=== PATIENT | female | born 1935 | race Caucasian/White ===

== ENCOUNTER 2017-08-19 05:18 | Emergency (ER) | payer MEDICARE ==
[~2017-08-19] VITALS: Ht 160 cm; Wt 93.6 kg
[~2017-08-19 05:18] MED LIST: AMOX875 PO; BENZ100 PO; LEVO88TA21 PO; OMEP20CA5 PO; PRIN20TA2 PO; VENTAER INH; ZIAC106.25 PO; ZITH500T PO
[2017-08-19 05:22] VITALS: BP 162/72; PULSE 86; RESP 18; TEMP 98.6; O2SAT 99
[2017-08-19 05:49] VITALS: BP 140/79; PULSE 84; RESP 16; TEMP 99.1; O2SAT 99
[2017-08-19] MEDS ORDERED: SODIUM CHLOR 0.9% 1000 ML INJ 1,000 ML IV SCH (06:18)
--- NOTE | 2017-08-19 06:22 | PD ---
HPI Chief Complaint: GI Complaint Time Seen by Provider: 06:12 Travel History International Travel<30 days: No Contact w/Intl Traveler<30days: No Traveled to known affect area: No History of Present Illness HPI The patient is an 82-year-old female that complains since 8 PM yesterday of nausea. She has not vomited. She also has some diaphoresis, shakiness, teeth chattering since then. She states she is very suspicious of some beats do that she opened it may have been opened previously. She says the solid and trim cocktail that she ate was fresh. In addition she has a global headache of gradual onset. PFSH Past Medical History GERD: Yes Hypertension: Yes Medical other: Yes (SJORGEN'S SYNDROME, STAGE 3 KIDNEY FAILURE, ARTHRITIS) Thyroid Disease: Yes Tetanus Vaccination: Unknown Influenza Vaccination: Yes ?: Not Dilation and Curettage (D&C): Yes Past Surgical History Eye Surgery: Yes (BILATERAL CATARACTS) Other Surgery: Yes (BREAST BIOPSY) Social History Alcohol Use: No Tobacco Use: No Substance Use: No Allergies-Medications (Allergen,Severity, Reaction): Coded Allergies: doxycycline (Verified Allergy, Intermediate, Hives, 08/19/17) minocycline (Verified Allergy, Intermediate, Hives, 08/19/17) tigecycline (Verified Allergy, Intermediate, Hives, 08/19/17) Reported Meds & Prescriptions Reported Meds & Active Scripts Active Ventolin Hfa (Albuterol Sulfate) 18 Gm Aero 2 Puff INH Q4HPRN * SHAKE WELL BEFORE USE * Tessalon Perles (Benzonatate) 100 Mg Cap 100 Mg PO TIDPRN Zithromax (Azithromycin) 500 Mg Tab 500 Mg PO DAILY Reported Amoxil (Amoxicillin) 875 Mg Tab 875 Mg PO BID Prinivil (Lisinopril) 20 Mg Tab 20 Mg PO DAILY Prilosec (Omeprazole) 20 Mg Capcr 20 Mg PO DAILY Ziac 10/6.25 (Bisoprolol Fumarate/HCTZ) Tab 1 Tab PO DAILY Levoxyl (Levothyroxine Sodium) 88 Mcg Tab 88 Mcg PO DAILY Review of Systems Except as stated in HPI: all other systems reviewed are Neg Physical Exam Narrative GENERAL: The patient is alert, oriented 3 in slight apparent distress with her nausea. Her vital signs initially show blood pressure 162/72 but repeat is 140/ 79. The vital signs otherwise are normal. SKIN: Focused skin assessment warm/dry. No skin rash is seen. HEAD: Atraumatic. Normocephalic. EYES: Pupils equal and round. No scleral icterus. No injection or drainage. ENT: No nasal bleeding or discharge. Mucous membranes pink and moist. NECK: Trachea midline. No JVD. CARDIOVASCULAR: Regular rate and rhythm. No murmur appreciated. RESPIRATORY: No accessory muscle use. Clear to auscultation. Breath sounds equal bilaterally. GASTROINTESTINAL: Abdomen soft, with minimal discomfort in all 4 quadrants to direct palpation, nondistended. Hepatic and splenic margins not palpable. No guarding or rebound is present. MUSCULOSKELETAL: No obvious deformities. No clubbing. No cyanosis. No edema. NEUROLOGICAL: Awake and alert. No obvious cranial nerve deficits. Motor grossly within normal limits. Normal speech. PSYCHIATRIC: Appropriate mood and affect; insight and judgment normal. Data Data Last Documented VS Vital Signs Date Time Temp Pulse Resp B/P (MAP) Pulse Ox O2 Delivery O2 Flow Rate FiO2 08/19/17 05:49 99.1 84 16 140/79 (99) 99 Orders Orders Complete Blood Count With Diff (08/19/17 06:18) Comprehensive Metabolic Panel (08/19/17 06:18) Lipase (08/19/17 06:18) Urinalysis - C+S If Indicated (08/19/17 06:18) Iv Access Insert/Monitor (08/19/17 06:18) Ecg Monitoring (08/19/17 06:18) Oximetry (08/19/17 06:18) Ondansetron Inj (Zofran Inj) (08/19/17 06:30) Sodium Chlor 0.9% 1000 Ml Inj (Ns 1000 M (08/19/17 06:18) Sodium Chloride 0.9% Flush (Ns Flush) (08/19/17 06:30) Labs Laboratory Tests Test 08/19/17 06:28 White Blood Count 4.8 TH/MM3 Red Blood Count 4.15 MIL/MM3 Hemoglobin 11.7 GM/DL Hematocrit 35.3 % Mean Corpuscular Volume 85.1 FL Mean Corpuscular Hemoglobin 28.2 PG Mean Corpuscular Hemoglobin Concent 33.1 % Red Cell Distribution Width 12.6 % Platelet Count 217 TH/MM3 Mean Platelet Volume 7.3 FL Neutrophils (%) (Auto) 73.5 % Lymphocytes (%) (Auto) 17.6 % Monocytes (%) (Auto) 7.7 % Eosinophils (%) (Auto) 0.6 % Basophils (%) (Auto) 0.6 % Neutrophils # (Auto) 3.6 TH/MM3 Lymphocytes # (Auto) 0.8 TH/MM3 Monocytes # (Auto) 0.4 TH/MM3 Eosinophils # (Auto) 0.0 TH/MM3 Basophils # (Auto) 0.0 TH/MM3 CBC Comment DIFF FINAL Differential Comment MDM Medical Decision Making Medical Screen Exam Complete: Yes Emergency Medical Condition: Yes Medical Record Reviewed: Yes Differential Diagnosis Gastroenteritis, food poisoning, colitis, electrolyte disorder Narrative Course It is now 7 0 3 AM and the patient is transferred to Dr. Willson. Jack Sandoval MD Aug 19, 2017 06:22
[2017-08-19] MEDS ORDERED: ONDANSETRON HCL 4 MG/2 ML VIAL IVP ONE (06:30)
[2017-08-19] MEDS ORDERED: SODIUM CHLORIDE 0.9% FLUSH 10 ML FLUSH IV FLUSH PRN (06:30)
[2017-08-19 06:41] LABS: AUTOMATED NEUTROPHIL # 3.6 TH/MM3 (1.8-7.7); BASOPHIL % 0.6 % (0.0-2.0); EOSINOPHIL % 0.6 % (0.0-4.0); HEMATOCRIT 35.3 % (35.0-46.0); HEMOGLOBIN 11.7 GM/DL (11.6-15.3); LYMPH % 17.6 % (9.0-44.0); LYMPHOCYTE # 0.8 TH/MM3 (1.0-4.8); MEAN CELL VOLUME 85.1 FL (80.0-100.0); MEAN CORPUSCULAR HEMOGLOBIN 28.2 PG (27.0-34.0); MEAN CORPUSCULAR HGB CONC 33.1 % (32.0-36.0); MEAN PLATELET VOLUME 7.3 FL (7.0-11.0); MONO % 7.7 % (0.0-8.0); MONOCYTE # 0.4 TH/MM3 (0-0.9); NEUT % 73.5 % (16.0-70.0); PLATELET COUNT 217 TH/MM3 (150-450); RED BLOOD COUNT 4.15 MIL/MM3 (4.00-5.30); RED CELL DISTRIBUTION WIDTH 12.6 % (11.6-17.2); WHITE BLOOD COUNT 4.8 TH/MM3 (4.0-11.0)
[2017-08-19 07:11] LABS: CHLORIDE 105 MEQ/L (98-107); SODIUM (NA) 138 MEQ/L (136-145)
[2017-08-19 07:17] LABS: ALBUMIN 3.6 GM/DL (3.4-5.0); BICARBONATE 24.6 MEQ/L (21.0-32.0); CALCIUM 9.5 MG/DL (8.5-10.1); GLUCOSE,RANDOM 110 MG/DL (74-106)
[2017-08-19 07:18] LABS: BLOOD UREA NITROGEN 33 MG/DL (7-18)
[2017-08-19 07:20] LABS: ALT (GPT) 20 U/L (10-53); AST (GOT) 15 U/L (15-37); GLOMERULAR FILTRATION RATE 33 ML/MIN (>89)
[2017-08-19 07:21] VITALS: BP 155/61; PULSE 75; RESP 18; O2SAT 99
[2017-08-19 07:22] LABS: TOTAL BILIRUBIN ADULT 0.4 MG/DL (0.2-1.0); TOTAL PROTEIN 7.9 GM/DL (6.4-8.2)
[2017-08-19 07:23] LABS: ALKALINE PHOSPHATASE 84 U/L (45-117)
[2017-08-19 07:27] LABS: BILIRUBIN, URINE NEG (NEG); BLOOD, URINE NEG (NEG); GLUCOSE,URINE NEG (NEG); KETONE, URINE NEG (NEG); NITRITE,URINE NEG (NEG); URINE COLOR YELLOW (YELLW/STRAW); URINE LEUKOCYTE ESTERASE TRACE (NEG)
[2017-08-19 07:40] LABS: WBC, URINE 0-2 /hpf (0-5)
--- NOTE | 2017-08-19 07:50 | PD ---
Physical Exam Date Seen by Provider: Aug 19, 2017 Time Seen by Provider: 07:47 Narrative This 82-year-old female had presented with shaking chill and general malaise. She thought it might be related to simply she had eaten earlier. She was seen initially by Dr. Sandoval who ordered some lab work. Her hemoglobin is 11 7 with a white count of 4.8. BUN 33 and creatinine of 1.5. The urine is negative for infection. She has been given some IV fluids. I have reassessed the patient at 745 and she says she feels well. Etiology for her episode is not clear was thought she might have some food poisoning though there has not been any vomiting or diarrhea. She is stable for discharge but has been encouraged to return if other symptoms should develop Data Data Last Documented VS Vital Signs Date Time Temp Pulse Resp B/P (MAP) Pulse Ox O2 Delivery O2 Flow Rate FiO2 08/19/17 07:21 75 18 155/61 (92) 99 Room Air 08/19/17 05:49 99.1 Orders Orders Complete Blood Count With Diff (08/19/17 06:18) Comprehensive Metabolic Panel (08/19/17 06:18) Lipase (08/19/17 06:18) Urinalysis - C+S If Indicated (08/19/17 06:18) Iv Access Insert/Monitor (08/19/17 06:18) Ecg Monitoring (08/19/17 06:18) Oximetry (08/19/17 06:18) Ondansetron Inj (Zofran Inj) (08/19/17 06:30) Sodium Chlor 0.9% 1000 Ml Inj (Ns 1000 M (08/19/17 06:18) Sodium Chloride 0.9% Flush (Ns Flush) (08/19/17 06:30) Labs Laboratory Tests Test 08/19/17 06:28 08/19/17 07:15 White Blood Count 4.8 TH/MM3 Red Blood Count 4.15 MIL/MM3 Hemoglobin 11.7 GM/DL Hematocrit 35.3 % Mean Corpuscular Volume 85.1 FL Mean Corpuscular Hemoglobin 28.2 PG Mean Corpuscular Hemoglobin Concent 33.1 % Red Cell Distribution Width 12.6 % Platelet Count 217 TH/MM3 Mean Platelet Volume 7.3 FL Neutrophils (%) (Auto) 73.5 % Lymphocytes (%) (Auto) 17.6 % Monocytes (%) (Auto) 7.7 % Eosinophils (%) (Auto) 0.6 % Basophils (%) (Auto) 0.6 % Neutrophils # (Auto) 3.6 TH/MM3 Lymphocytes # (Auto) 0.8 TH/MM3 Monocytes # (Auto) 0.4 TH/MM3 Eosinophils # (Auto) 0.0 TH/MM3 Basophils # (Auto) 0.0 TH/MM3 CBC Comment DIFF FINAL Differential Comment Blood Urea Nitrogen 33 MG/DL Creatinine 1.50 MG/DL Random Glucose 110 MG/DL Total Protein 7.9 GM/DL Albumin 3.6 GM/DL Calcium Level 9.5 MG/DL Alkaline Phosphatase 84 U/L Aspartate Amino Transf (AST/SGOT) 15 U/L Alanine Aminotransferase (ALT/SGPT) 20 U/L Total Bilirubin 0.4 MG/DL Sodium Level 138 MEQ/L Potassium Level 3.8 MEQ/L Chloride Level 105 MEQ/L Carbon Dioxide Level 24.6 MEQ/L Anion Gap 8 MEQ/L Estimat Glomerular Filtration Rate 33 ML/MIN Lipase 237 U/L Urine Color YELLOW Urine Turbidity CLEAR Urine pH 5.0 Urine Specific [place] 1.010 Urine Protein NEG mg/dL Urine Glucose (UA) NEG mg/dL Urine Ketones NEG mg/dL Urine Occult Blood NEG Urine Nitrite NEG Urine Bilirubin NEG Urine Urobilinogen 0.2 MG/DL Urine Leukocyte Esterase TRACE Urine WBC 0-2 /hpf Urine Squamous Epithelial Cells 6-8 /hpf Microscopic Urinalysis Comment CULT NOT INDICATED MDM Medical Record Reviewed: No Supervised Visit with SHALA: No Differential Diagnosis Differential includes food poisoning, UTI Narrative Course There is no evidence of UTI. Patient is feeling well now and will be released. Lab work is unremarkable Diagnosis Primary Impression: Food poisoning Additional Instruction: Return if symptoms progress Disposition: 01 DISCHARGE HOME Condition: Stable Amando Garcia MD Aug 19, 2017 07:50
== END 2017-08-19 08:17 | disposition home or self-care (01) ==
LOC: EDBD 05:18 → PHED 05:18
DX: T62.91XA Toxic effect of unspecified noxious substance eaten as food, accidental (unintentional), initial encounter (principal); R51 Headache; K21.9 Gastro-esophageal reflux disease without esophagitis; M35.00 Sjogren syndrome, unspecified; I12.9 Hypertensive chronic kidney disease with stage 1 through stage 4 chronic kidney disease, or unspecified chronic kidney disease; N18.3 Chronic kidney disease, stage 3 (moderate); M19.90 Unspecified osteoarthritis, unspecified site; Z79.899 Other long term (current) drug therapy; Z88.8 Allergy status to other drugs, medicaments and biological substances
CPT/HCPCS: 80053; 81001; 83690; 85025; 96361; 96374; 99284; J2405; J7030

== ENCOUNTER 2017-08-23 20:05 | Emergency (ER) | payer MEDICARE ==
[~2017-08-23] VITALS: Ht 160 cm; Wt 90.0 kg
[2017-08-23 20:15] VITALS: BP 199/97; PULSE 73; RESP 18; TEMP 98.1; O2SAT 97
[2017-08-23 20:22] VITALS: BP 163/83; PULSE 71; RESP 20; O2SAT 98
[2017-08-23] MEDS ORDERED: ONDANSETRON HCL 4 MG/2 ML VIAL IVP ONE (20:30)
[2017-08-23] MEDS ORDERED: SODIUM CHLORIDE 0.9% FLUSH 10 ML FLUSH IVF PRN (20:30)
--- NOTE | 2017-08-23 20:44 | PD ---
HPI Chief Complaint: Numbness/Tingling Time Seen by Provider: 20:08 Travel History International Travel<30 days: No Contact w/Intl Traveler<30days: No Traveled to known affect area: No History of Present Illness HPI 82-year-old female presents to the emergency department by private transportation for complaint of persistent generalized weakness intermittent facial flushing nausea loose stool and not feeling well since . Patient states that she served dinner to 6 people and herself Thursday evening with a lot of salad shrimp cocktail and a beef stew; patient states everyone ate the same foods and only she became ill. Patient's had no fever or chills. Patient's had no actual vomiting and no bloody or mucoid stool. Patient also denies any chest pain palpitations or shortness of breath. Patient had no altered mentation visual disturbance speech disturbance difficulty swallowing swelling of lip tongue sore throat no stridor no hoarseness no shortness of breath no wheezing no chest pain no palpitations no near-syncope no syncope no abdominal pain no flank pain no dysuria frequency urgency no cough no congestion and again no vomiting or diarrhea. Also no report of distal weakness or ascending weakness or weakness or paresthesias involving the feet or hands. Patient has history of hypertension dyslipidemia palpitations and hypothyroidism. Patient states that she recently started Crestor within the past 6 weeks. Patient does not note specific muscle pain or weakness. Patient rates her discomfort 0/10 intensity. Patient states she has taken Tylenol that alleviates her symptoms for a while but then they returned. Patient states that periodically she feels like her entire face is flushed bilaterally or none and some paresthesias of the lips but this resolves after taking acetaminophen. Patient denies these symptoms at this time. Patient is unable to identify any specific exacerbating symptom. Patient states she was seen in the emergency department and evaluation at that time revealed no specific abnormality with patient was given a prescription for Zofran but because her nausea is intermittent has not taken this medication. The patient denies any recent antibiotic use. [facility] Past Medical History Narrative Medical Hypertension dyslipidemia GERD hypothyroidism; no tobacco use no alcohol use no substance use; nursing notes reviewed GERD: Yes Hypertension: Yes Thyroid Disease: Yes Dilation and Curettage (D&C): Yes Past Surgical History Eye Surgery: Yes (BILATERAL CATARACTS) Other Surgery: Yes (BREAST BIOPSY) Social History Alcohol Use: No Tobacco Use: No Substance Use: No Allergies-Medications (Allergen,Severity, Reaction): Coded Allergies: tetracycline (Verified Allergy, Severe, Hives, 08/23/17) doxycycline (Verified Allergy, Intermediate, Hives, 08/23/17) minocycline (Verified Allergy, Intermediate, Hives, 08/23/17) tigecycline (Verified Allergy, Intermediate, Hives, 08/23/17) ciprofloxacin (Verified Adverse Reaction, Severe, Hallucinations, 08/23/17) Reported Meds & Prescriptions Reported Meds & Active Scripts Active Zofran Odt (Ondansetron Odt) 4 Mg Tab 4 Mg SL Q6HR PRN Reported Crestor (Rosuvastatin Calcium) 5 Mg Tab 5 Mg PO DAILY Aspirin Low Dose (Aspirin) 81 Mg Chew 81 Mg CHEW DAILY Unisom Sleep Aid (Doxylamine Succinate) 25 Mg Tablet 25 Mg PO HS Amoxicillin 500 Mg Cap 500 Mg PO BID Lisinopril 30 Mg Tab 30 Mg PO DAILY Levothyroxine (Levothyroxine Sodium) 88 Mcg Tab 88 Mcg PO DAILY Omeprazole 20 Mg Tab 20 Mg PO DAILY Narrative Medication (amoxil only for dental appointments--none now and none recent) Review of Systems Except as stated in HPI: all other systems reviewed are Neg General / Constitutional: No: Fever, Chills Eyes: No: Visual changes HENT: No: Headaches, Lightheadedness, Congestion, Neck Stiffness Cardiovascular: No: Chest Pain or Discomfort, Palpitations, Diaphoresis, Syncope Respiratory: No: Shortness of Breath, Orthopnea, Pleuritic Pain Gastrointestinal: Positive: Nausea, No: Vomiting, Diarrhea, Abdominal Pain Genitourinary: No: Dysuria, Flank Pain Musculoskeletal: No: Myalgias, Arthralgias, Cramping, Edema Skin: No Rash Neurologic: Positive: Weakness, Dizziness, Paresthesia ("facial flushing and occasional lips "tingle"--nmot now --resolves with Tylenol), No: Syncope, Focal Abnormalities, Coordination Problem, Headache, Change in Mentation, Slurred Speech Psychiatric: No: Anxiety Hematologic/Lymphatic: No: Easy Bruising, Lymph Node Enlargement Physical Exam Narrative GENERAL: Well-developed well-nourished female no acute distress no respiratory distress SKIN: Warm and dry. HEAD: Atraumatic. Normocephalic. EYES: Pupils equal and round. No scleral icterus. No injection or drainage. ENT: No nasal bleeding or discharge. Mucous membranes pink and moist. NECK: Trachea midline. No JVD. CARDIOVASCULAR: Regular rate and rhythm. RESPIRATORY: No accessory muscle use. Clear to auscultation. Breath sounds equal bilaterally. GASTROINTESTINAL: Abdomen soft, non-tender, nondistended. Hepatic and splenic margins not palpable. MUSCULOSKELETAL: Extremities without clubbing, cyanosis, or edema. No obvious deformities. NEUROLOGICAL: Awake and alert. No obvious cranial nerve deficits. Motor grossly within normal limits. Five out of 5 muscle strength in the arms and legs. Sensory exam intact. No limb ataxia. No pronator drift. Normal speech. PSYCHIATRIC: Appropriate mood and affect; insight and judgment normal. Data Data Last Documented VS Vital Signs Date Time Temp Pulse Resp B/P (MAP) Pulse Ox O2 Delivery O2 Flow Rate FiO2 08/23/17 21:21 68 20 131/76 (94) 97 08/23/17 20:22 Room Air 08/23/17 20:15 98.1 Orders Orders Electrocardiogram (08/23/17 20:17) Complete Blood Count With Diff (08/23/17 20:17) Comprehensive Metabolic Panel (08/23/17 20:17) Magnesium (Mg) (08/23/17 20:17) Ckmb (Isoenzyme) Profile (08/23/17 20:17) Troponin I (08/23/17 20:17) Act Partial Throm Time (Ptt) (08/23/17 20:17) Prothrombin Time / Inr (Pt) (08/23/17 20:17) Urinalysis - C+S If Indicated (08/23/17 20:17) Chest, Single Ap (08/23/17 20:17) Ecg Monitoring (08/23/17 20:17) Iv Access Insert/Monitor (08/23/17 20:17) Oximetry (08/23/17 20:17) Ondansetron Inj (Zofran Inj) (08/23/17 20:30) Sodium Chloride 0.9% Flush (Ns Flush) (08/23/17 20:30) Thyroid Stimulating Hormone (08/23/17 20:40) Ct Brain W/O Iv Contrast(Rout) (08/23/17 ) Sodium Chlorid 0.9% 500 Ml Inj (Ns 500 M (08/23/17 22:15) Labs Laboratory Tests Test 08/23/17 20:40 08/23/17 22:10 White Blood Count 3.1 TH/MM3 Red Blood Count 4.27 MIL/MM3 Hemoglobin 12.1 GM/DL Hematocrit 36.2 % Mean Corpuscular Volume 84.8 FL Mean Corpuscular Hemoglobin 28.2 PG Mean Corpuscular Hemoglobin Concent 33.3 % Red Cell Distribution Width 12.8 % Platelet Count 228 TH/MM3 Mean Platelet Volume 6.6 FL Neutrophils (%) (Auto) 53.3 % Lymphocytes (%) (Auto) 32.0 % Monocytes (%) (Auto) 12.2 % Eosinophils (%) (Auto) 1.8 % Basophils (%) (Auto) 0.7 % Neutrophils # (Auto) 1.6 TH/MM3 Lymphocytes # (Auto) 1.0 TH/MM3 Monocytes # (Auto) 0.4 TH/MM3 Eosinophils # (Auto) 0.1 TH/MM3 Basophils # (Auto) 0.0 TH/MM3 CBC Comment DIFF FINAL Differential Comment Prothrombin Time 10.2 SEC Prothromb Time International Ratio 1.0 RATIO Activated Partial Thromboplast Time 26.6 SEC Blood Urea Nitrogen 16 MG/DL Creatinine 1.20 MG/DL Random Glucose 112 MG/DL Total Protein 7.7 GM/DL Albumin 3.5 GM/DL Calcium Level 9.0 MG/DL Magnesium Level 1.9 MG/DL Alkaline Phosphatase 84 U/L Aspartate Amino Transf (AST/SGOT) 17 U/L Alanine Aminotransferase (ALT/SGPT) 17 U/L Total Bilirubin 0.2 MG/DL Sodium Level 136 MEQ/L Potassium Level 3.5 MEQ/L Chloride Level 103 MEQ/L Carbon Dioxide Level 26.4 MEQ/L Anion Gap 7 MEQ/L Estimat Glomerular Filtration Rate 43 ML/MIN Total Creatine Kinase 52 U/L Troponin I LESS THAN 0.02 NG/ML Thyroid Stimulating Hormone 3rd Gen 8.950 uIU/ML Urine Collection Type CLEAN CATCH Urine Color YELLOW Urine Turbidity CLEAR Urine pH 5.5 Urine Specific [place] 1.015 Urine Protein NEG mg/dL Urine Glucose (UA) NEG mg/dL Urine Ketones NEG mg/dL Urine Occult Blood NEG Urine Nitrite NEG Urine Bilirubin NEG Urine Urobilinogen 0.2 MG/DL Urine Leukocyte Esterase TRACE Urine WBC 3-5 /hpf Urine Squamous Epithelial Cells 0-5 /hpf Urine Amorphous Sediment SMALL Urine Hyaline Casts 0-2 /lpf Urine Mucus OCC /lpf Microscopic Urinalysis Comment CULT NOT INDICATED MDM Medical Decision Making Medical Screen Exam Complete: Yes Emergency Medical Condition: Yes Medical Record Reviewed: Yes Interpretation(s) EKG normal sinus rhythm rate [address] elevation or injury pattern change poor progression anteroseptally Last Impressions Chest X-Ray 08/23/172016 Signed Impressions: Service Date/Time: Wednesday, August 23, 2017 20:25 - CONCLUSION: No acute cardiopulmonary abnormality is identified. Dony Dalton MD CBC & BMP Diagram 08/23/17 20:40 Total Protein 7.7, Albumin 3.5, Calcium Level 9.0, Magnesium Level 1.9, Alkaline Phosphatase 84, Aspartate Amino Transf (AST/SGOT) 17, Alanine Aminotransferase (ALT/SGPT) 17, Total Bilirubin 0.2 Vital Signs Date Time Temp Pulse Resp B/P (MAP) Pulse Ox O2 Delivery O2 Flow Rate FiO2 08/23/17 21:21 68 20 131/76 (94) 97 08/23/17 21:21 70 20 94 08/23/17 20:22 71 20 163/83 (109) 98 Room Air 08/23/17 20:15 98.1 73 18 199/97 (131) 97 CT brain: CONCLUSION: No acute intracranial abnormality is identified. Dony Dalton MD on August 23, 2017 at 21:53 Board Certified Radiologist. This report was verified electronically. Troponin I: less than 0.02, not elevated; CK: 52, not elevated TSH: 8.950, elevated UA: wnl Differential Diagnosis Electrolyte disturbance, arrhythmia, ACS, thyroid dysfunction, UTI, viral syndrome, gastroenteritis, food poisoning, TIA, adverse reaction to statin medication, sirs/sepsis; also to consider Guillain-Jackson', unlikely botulinum toxin Narrative Course Patient placed on classroom monitor IV access obtained specimens collected and sent for resulting; no focal neurologic deficit identified At 9 PM patient notes symptom improvement after IV Zofran administration Lab values are grossly within normal limits except for mild decrease in total white cell count consistent with probable viral syndrome Chest x-ray no lobar infiltrate CT brain reveals no acute process Urinalysis remains pending It is 10 PM patient with family at bedside aware of lab results imaging results and EKG and at this time feels improved and able to provide a urine specimen. Patient does not complain of any facial flushing or intermittent paresthesias and has no upper or lower extremity numbness tingling or weakness. Patient moves fluidly from lying to sitting to standing and is able to ambulate without difficulty or assistance to the bathroom. Laboratory values are grossly within normal range except for mildly decreased white cell count 3100/ANC 1600 (not neutropenic), mild renal insufficiency that is better since visit , and elevated TSH level with history of hypothyroidism--she is aware that she will need to have this followed by her PCP this week. UA: wnl Patient is stable for outpatient management --provided RX for Zofran and again encouraged to see her PCP this week and return for any concerns. Diagnosis Primary Impression: Viral syndrome Additional Impression: Hypothyroidism Referrals: Primary Care Physician 1 day Patient Instructions: General Instructions Additional Instructions: Increase fluid hydration Monitor temperature every 4 hours with thermometer; take acetaminophen/Tylenol every 4 hours for fever 100.4F or greater Return to the emergency department for fever, pain, weakness, vomiting, or any concerns Follow-up with your primary care provider this week; call office in a.m. to schedule follow-up appointment regarding recent ED visits and follow-up on thyroid function May take Zofran as prescribed as needed for nausea and/or vomiting Med/Other Pt SpecificInfo: Prescription(s) given Scripts Ondansetron Odt (Zofran Odt) 4 Mg Tab 4 MG SL Q6HR Y for Nausea/Vomiting, #10 TAB 0 Refills Prov: Hollie Shin MD 08/23/17 Disposition: 01 DISCHARGE HOME Condition: Stable Hollie Shin MD Aug 23, 2017 20:44
--- NOTE | 2017-08-23 20:47 | RADRPT ---
EXAM DATE/TIME: 08/23/2017 20:25 [facility] COMPARISON: CHEST PA & LAT, June 19, 2009, 19:09. INDICATIONS : General weakness with numbness in the face. MEDICAL HISTORY : Hypertension. SURGICAL HISTORY : None. ENCOUNTER: Initial ACUITY: 1 day PAIN SCORE: 0/10 LOCATION: Bilateral chest FINDINGS: Portable AP view of the chest demonstrates a normal-sized cardiac silhouette. No effusion, consolidat ion, or pneumothorax is visualized. The bones and soft tissues demonstrate no acute abnormality. EKG lines overlie the patient. CONCLUSION: No acute cardiopulmonary abnormality is identified. Dony Dalton MD on August 23, 2017 at 20:44 Board Certified Radiologist. This report was verified electronically.
[2017-08-23 20:51] LABS: AUTOMATED NEUTROPHIL # 1.6 TH/MM3 (1.8-7.7); BASOPHIL % 0.7 % (0.0-2.0); EOSINOPHIL # 0.1 TH/MM3 (0-0.4); EOSINOPHIL % 1.8 % (0.0-4.0); HEMATOCRIT 36.2 % (35.0-46.0); HEMOGLOBIN 12.1 GM/DL (11.6-15.3); MEAN CELL VOLUME 84.8 FL (80.0-100.0); MEAN CORPUSCULAR HEMOGLOBIN 28.2 PG (27.0-34.0); MEAN CORPUSCULAR HGB CONC 33.3 % (32.0-36.0); MEAN PLATELET VOLUME 6.6 FL (7.0-11.0); MONO % 12.2 % (0.0-8.0); MONOCYTE # 0.4 TH/MM3 (0-0.9); NEUT % 53.3 % (16.0-70.0); PLATELET COUNT 228 TH/MM3 (150-450); RED BLOOD COUNT 4.27 MIL/MM3 (4.00-5.30); RED CELL DISTRIBUTION WIDTH 12.8 % (11.6-17.2); WHITE BLOOD COUNT 3.1 TH/MM3 (4.0-11.0)
[2017-08-23 21:00] LABS: CHLORIDE 103 MEQ/L (98-107); SODIUM (NA) 136 MEQ/L (136-145)
[2017-08-23 21:04] LABS: ALBUMIN 3.5 GM/DL (3.4-5.0); BICARBONATE 26.4 MEQ/L (21.0-32.0); BLOOD UREA NITROGEN 16 MG/DL (7-18); GLUCOSE,RANDOM 112 MG/DL (74-106); MAGNESIUM 1.9 MG/DL (1.5-2.5)
[2017-08-23 21:05] LABS: PROTHROMBIN TIME - PATIENT 10.2 SEC (9.8-11.6)
[2017-08-23 21:07] LABS: ALT (GPT) 17 U/L (10-53); AST (GOT) 17 U/L (15-37); GLOMERULAR FILTRATION RATE 43 ML/MIN (>89)
[2017-08-23 21:08] LABS: TOTAL BILIRUBIN ADULT 0.2 MG/DL (0.2-1.0); TOTAL PROTEIN 7.7 GM/DL (6.4-8.2)
[2017-08-23 21:09] LABS: ALKALINE PHOSPHATASE 84 U/L (45-117)
[2017-08-23 21:12] LABS: TROPONIN I LESS THAN 0.02 NG/ML (0.02-0.05)
[2017-08-23 21:21] VITALS: BP_SYST 13; BP_SYST 131; BP_DIAS 76; PULSE 68; RESP 20; O2SAT 97
[2017-08-23] MEDS ORDERED: ASPI81CH6 CHEW (21:38)
[2017-08-23] MEDS ORDERED: UNIS25TA3 PO (21:38)
[2017-08-23] MEDS ORDERED: LEVO88TA2 PO (21:38)
[2017-08-23] MEDS ORDERED: LISI30TA4 PO (21:38)
[2017-08-23] MEDS ORDERED: OMEP20TA93 PO (21:38)
[2017-08-23] MEDS ORDERED: ROSU5 PO (21:38)
[2017-08-23] MEDS ORDERED: AMOX500C PO (21:38)
--- NOTE | 2017-08-23 21:57 | RADRPT ---
EXAM DATE/TIME: 08/23/2017 21:35 [facility] COMPARISON: No previous studies available for comparison. INDICATIONS : Facial weakness. Nausea. Vomiting. RADIATION DOSE: 50.45 CTDIvol (mGy) MEDICAL HISTORY : Hypertension. SURGICAL HISTORY : None. ENCOUNTER: Initial ACUITY: 3 days PAIN SCALE: 0/10 LOCATION: Bilateral facial TECHNIQUE: Multiple contiguous axial images were obtained of the head. Using automated exposure control and adj ustment of the mA and/or kV according to patient size, radiation dose was kept as low as reasonably a chievable to obtain optimal diagnostic quality images. DICOM format image data is available electro nically for review and comparison. FINDINGS: CEREBRUM: There is mild generalized atrophy. Ventricles are normal in size. There is pineal gland calcification . No evidence of midline shift, mass lesion, hemorrhage or acute infarction. No extra-axial fluid c ollections are seen. POSTERIOR FOSSA: The cerebellum and brainstem demonstrate no acute finding. The 4th ventricle is midline. The cerebe llopontine angle is unremarkable. EXTRACRANIAL: Visualized sinuses are clear. SKULL: The calvaria is intact. No evidence of skull fracture. CONCLUSION: No acute intracranial abnormality is identified. Dony Dalton MD on August 23, 2017 at 21:53 Board Certified Radiologist. This report was verified electronically.
[2017-08-23] MEDS ORDERED: SODIUM CHLORID 0.9% 500 ML INJ 500 ML IV ONE (22:15)
[2017-08-23] MEDS ORDERED: ZOFR4TAB3 SL (22:17)
[2017-08-23 22:32] LABS: BILIRUBIN, URINE NEG (NEG); BLOOD, URINE NEG (NEG); GLUCOSE,URINE NEG (NEG); KETONE, URINE NEG (NEG); NITRITE,URINE NEG (NEG); PH, URINE 5.5 (5.0-8.5); URINE COLOR YELLOW (YELLW/STRAW); URINE LEUKOCYTE ESTERASE TRACE (NEG)
[2017-08-23 22:37] LABS: AMORPHOUS SEDIMENT, URINE SMALL; HYALINE CAST, URINE 0-2 /lpf (RARE); MUCUS URINE OCC /lpf (OCC); SQUAMOUS EPITHELIAL CELL URINE 0-5 /hpf (0-5)
[2017-08-23 23:25] VITALS: BP 131/74
--- NOTE | 2017-08-23 23:45 | EKG ---
Date Performed: 08/23/2017 Time Performed: 20:27:03 PTAGE: 82 years EKG: Sinus rhythm WITH FIRST DEGREE AV BLOCK LOW QRS VOLTAGE IN PRECORDIAL LEADS INCOMPLETE RIGHT BUNDLE BRANCH BLOCK ABNORMAL ECG NO PREVIOUS TRACING DOCTOR: Miguel Lal Interpretating Date/Time 08/23/2017 23:43:11
== END 2017-08-23 23:58 | disposition home or self-care (01) ==
LOC: PHED 20:05
DX: B34.9 Viral infection, unspecified (principal); I44.0 Atrioventricular block, first degree; I45.10 Unspecified right bundle-branch block; R94.31 Abnormal electrocardiogram [ECG] [EKG]; E03.9 Hypothyroidism, unspecified; I10 Essential (primary) hypertension; E78.5 Hyperlipidemia, unspecified; R00.2 Palpitations; K21.9 Gastro-esophageal reflux disease without esophagitis
CPT/HCPCS: 70450; 71045; 80053; 81001; 82550; 83735; 84443; 84484; 85025; 85610; 85730; 93005; 96374; 99285; J2405; J7040